=== PATIENT | female | born 1995 | race Caucasian/White ===

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

== ENCOUNTER 2019-02-25 18:17 | Emergency (ER) | payer OTHER | END 2019-02-25 21:55 | disposition home or self-care (01) | LOC: JER 18:17 ==

== ENCOUNTER 2019-02-27 12:17 | Emergency (ER) | payer OTHER ==
[2019-02-27 12:25] VITALS: BMI 33.5
[2019-02-27] MEDS ORDERED: ACETAMINOPHEN 1000 MG/100 ML VIAL (NON FORMULARY) IVPB ONE (12:44)
[2019-02-27] MEDS ORDERED: METOCLOPRAMIDE HCL INJECTION 10 MG/2 ML VIAL IVPUSH ONE (12:44)
[2019-02-27] MEDS ORDERED: SODIUM CHLORIDE 1,000 ML IV STA (13:02)
--- NOTE | 2019-02-27 13:15 | PDOC ---
History of Present Illness - General Chief Complaint: Migraine Headache Stated Complaint: HEADACHE / VOMITTING Time Seen by Provider: 02/27/19 12:31 History Source: Patient Exam Limitations: No Limitations - History of Present Illness Initial Comments: 02/27/19 13:08 23 yo female no sig pmh presents to the ED with intermittent 2 month headache, dizziness, bilateral blurry vision and eye pain. Pt seen in the ED 2 days ago for same symptoms, given toradol, fluids and benadryl with some improvement in JONES, DC home with zofran but did not fill prescription (states she did not know medications were sent). Pt saw PCP, Dr. Merino yesterday for same symptoms, states medication was sent to her pharmacy (does not know name of medication) but states that specific pharmacy will not be open until Friday. Todays s/s of of the same quality and intensity as past 2 days but due to constant NB/NB vomiting with all meals and drinks, has not kept a meal down since . Pt JONES described as pounding, non radiating, intermittent 5X a day and lasts approx 2-3 hours at a time. Pt is a new mother, baby is 1.5 years. Pt has associated photophobia of note, seen by optho and told she has "an allergy to the eyes and given antihistamines. Denies sensory changes or weakness on 1 side of her body, confusion, ambulatory disfunction, changes in speech, neck pain, CP, SOB, abdominal pain. Denies F/C/N/V cough, sore throat, body aches. 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 Past History - Past Medical History Allergies/Adverse Reactions: Allergies Allergy/AdvReac Type Severity Reaction Status Date / Time No Known Allergies Allergy Verified 02/27/19 12:25 Home Medications: Ambulatory Orders Meclizine HCl 25 mg PO TID PRN #20 tablet 02/25/19 Naproxen [Naprosyn -] 250 mg PO BID 02/25/19 Ondansetron [Zofran Odt -] 4 mg SL TID PRN #21 od.tablet 02/25/19 Pyridoxine HCl (B-6) [Vitamin B6] 50 mg PO DAILY 02/25/19 COPD: No - Reproductive History (#): 1 Para: 0 Spontaneous : 1 - Suicide/Smoking/Psychosocial Hx Smoking History: Never smoked Hx Alcohol Use: No Drug/Substance Use Hx: No Substance Use Type: None Review of Systems - Review of Systems Constitutional: No: Chills, Fever HEENTM: Yes: Eye Pain, Double Vision. No: Ear Pain, Tinnitus, Mouth Pain Respiratory: No: Shortness of Breath, Wheezing Cardiac (ROS): No: Chest Pain, Edema ABD/GI: Yes: Nausea, Vomiting. No: Constipated, Diarrhea : No: Burning, Dysuria, Discharge, Frequency, Flank Pain, Hematuria Musculoskeletal: No: Back Pain, Muscle Weakness, Neck Pain Neurological: Yes: Headache, Dizziness. No: Numbness, Paresthesia, Weakness, Unsteady Gait, Ataxia *Physical Exam - Vital Signs Last Vital Signs Temp Pulse Resp BP Pulse Ox 98.8 F 76 18 124/82 99 02/27/19 12:24 02/27/19 12:24 02/27/19 12:24 02/27/19 12:24 02/27/19 12:24 - Physical Exam General Appearance: Yes: Nourished, Appropriately Dressed. No: Apparent Distress HEENT: positive: EOMI, [place], Normal Voice, TMs Normal, Photophobia, Hearing Grossly Normal. negative: Pale Conjunctivae, Scleral Icterus (R), Scleral Icterus (L), Tonsillar Erythema, TM Erythema Neck: positive: Supple. negative: Carotid bruit Respiratory/Chest: positive: Lungs Clear, Normal Breath Sounds. negative: Respiratory Distress, Rapid RR, Crackles, Rales, Rhonchi, Stridor, Wheezing Cardiovascular: positive: Regular Rhythm, Regular Rate, S1, S2. negative: Edema , JVD, Murmur Vascular Pulses: Dorsalis-Pedis (R): 4+, Doralis-Pedis (L): 4+ Gastrointestinal/Abdominal: positive: Flat, Soft. negative: Distended, Guarding , Rebound, Tenderness Extremity: positive: Normal Capillary Refill, Normal Inspection, Normal Range of Motion Integumentary: positive: Normal Color, Dry, Warm Neurologic: positive: professional athlete II-XII NML intact, Fully Oriented, Alert, Normal Mood/ Affect, Normal Response, Motor Strength 5/5. negative: Facial Droop, Numbness, Sensory Deficit, Finger to Nose (normal), Confused, Disoriented ED Treatment Course - RADIOLOGY Radiology Studies Ordered: Category Date Time Status HEAD CT WITHOUT CONTRAST [CT] Stat CT Scan 02/27/19 13:02 Ordered *DC/Admit/Observation/Transfer Diagnosis at time of Disposition: Headache Qualifiers: Headache type: other headache syndrome Qualified Code(s): G44.89 - Other headache syndrome - Discharge Dispostion Disposition: HOME Condition at time of disposition: Stable Decision to Admit order: No - Referrals Referrals: Socorro Burnett MD [Staff Physician] - Cornelio Portillo DO [Staff Physician] - - Patient Instructions Printed Discharge Instructions: DI for Headache, DI for Migraine Additional Instructions: Please see your Primary Doctor within the next 48 hours. Make an appointment with the Neurologist referred to you as soon as possible. Take the medication sent to your Pharmacy by your Primary Doctor and also Zofran for nausea. Return to the ER for new or concerning symptoms including but not limited to: severe headaches, changes in vision/speech, weakness/changes in sensation on 1 side of your body, inability to eat or drink, high fevers. Thank you - Post Discharge Activity
[2019-02-27] MEDS ORDERED: ACETAMINOPHEN INJECTION 100 ML IVPB ONE (13:28)
[2019-02-27] MEDS ORDERED: METOCLOPRAMIDE HCL INJECTION 10 MG/2 ML VIAL ONE (13:28)
--- NOTE | 2019-02-27 13:29 | PDOC ---
Documentation entered by Ange Jacobs SCRIBE, acting as scribe for Marisela Olivera DO. Marisela Olivera DO: This documentation has been prepared by the Reynaldo bills Sammi, SCRIBE, under my direction and personally reviewed by me in its entirety. I confirm that the documentation accurately reflects all work, treatment, procedures, and medical decision making performed by me. Attending Attestation - Resident Resident Name: LisandrojamesGerman - ED Attending Attestation I have performed the following: I have examined & evaluated the patient, The case was reviewed & discussed with the resident, I agree w/resident's findings & plan, Exceptions are as noted - HPI HPI: 02/27/19 13:10 The patient is a 23 year old female, with no significant PMH, who presents to the emergency department for evaluation of 2 months of intermittent migraines (~ 5x/day). She endorses double vision and eye pain secondary to the migraine. The patient states since her headaches have been accompanied by nausea and vomiting, prompting her arrival to the ED. The patient denies chest pain, shortness of breath. Denies fever, chills, diarrhea and constipation. Denies dysuria, frequency, urgency and hematuria. Allergies: NKA - Physicial Exam PE: 02/27/19 13:22 Constitutional: Awake, alert, oriented. No acute distress. Head: Normocephalic. Atraumatic Eyes: PERRL. EOMI. Conjunctivae are not pale. ENT: Mucous membranes are moist and intact. Posterior pharynx without exudate or erythema. Uvula midline. Neck: Supple. Full ROM. No lymphadenopathy. Cardiovascular: Regular rate. Regular rhythm. S1, S2 regular. Distal pulses are 2+ and symmetric. Pulmonary/Chest: No evidence of respiratory distress. Clear to auscultation bilaterally No wheezing, rales or rhonchi. Abdominal: Soft and non-distended. There is no tenderness. No rebound, guarding or rigidity. No organomegaly. No palpable masses. Good bowel sounds. Back: No CVA tenderness. No midline spine tenderness. Musculoskeletal: No edema. No cyanosis. No clubbing. Full range of motion in all extremities. No calf tenderness. Radial/pedal pulses are intact and 2+ bilaterally Skin: Skin is warm and dry. No petechiae. No purpura. Neurological: No meningeal signs. Alert and oriented to person, place, and time. Cranial nerves II-XII are grossly intact. Normal speech. Strength is grossly symmetric. No sensory deficits. Psychiatric: Good eye contact. Normal interaction, affect and behavior. - Medical Decision Making 02/27/19 13:26 I, Dr. Marisela Olivera, DO, attest that this document has been prepared under my direction and personally reviewed by me in its entirety. I further attest, that it accurately reflects all work, treatment, procedures and medical decision -making performed by me. 02/27/19 13:26 a/p: 23yo female with 3 days of n/v and hartmann -was seen in the ED and given meds and felt better, labs reviewed from that day -pt states she did not know she had meds sent to pharmacy - never picked them up -states 2m of blurred vision - seen by Ophtho who told her to use eye drops for allergies, pt is not using drops -pt states band feeling around head -seen by PMD yesterday and dx with migraines, pmd wrote rx for meds, but pt states the pharmacy did not have the meds in stock -pt states hartmann and n/v today -no diarrhea -mild epigastric abd pain assoc with nausea -nbnb vomiting -no wt loss or gain -pt neuro intact -will place iv, will send for head ct -will monitor and reassess 02/27/19 14:44 pt ambulatory in the ED with a steady gait 02/27/19 15:[address] does not show acute findings pt states hartmann improved, but not gone ambulatory with a steady gait neuro intact given a copy of the ct report 02/27/19 15:23 pt with vomiting after po challenge 02/27/19 15:27 will repeat labs 02/27/19 16:19 chem hemolyzed, will repeat pt walking around states hartmann resolved feeling much better wants to po challenge again given water 02/27/19 16:20 if pt tolerates po and labs stable then pt can dc to home and follow up with neuro/ophtho *DC/Admit/Observation/Transfer Diagnosis at time of Disposition: Headache - Discharge Dispostion Condition at time of disposition: Stable Decision to Admit order: No - Referrals Referrals: Shagufta Dutta [Primary Care Provider] - Cornelio Portillo DO [Staff Physician] - - Patient Instructions Printed Discharge Instructions: DI for Migraine Additional Instructions: Please make an appointment to see your ophthomologist this week. Please make an appointment to see the neurologist for further evaluation of your headaches. Please take all meds as prescribed. Please return to the ED with any further concerns or complaints. Please make an appointment to see your primary care physician this week for a follow up appointment. - Post Discharge Activity
[2019-02-27] MEDS ORDERED: KETOROLAC TROMETHAMINE 30 MG/1 ML VIAL IVPUSH ONE (15:01)
[2019-02-27] MEDS ORDERED: KETOROLAC TROMETHAMINE 30 MG/1 ML VIAL ONE (15:08)
[2019-02-27] MEDS ORDERED: ONDANSETRON 4 MG/2 ML VIAL IVPUSH ONE (15:16)
[2019-02-27] MEDS ORDERED: ONDANSETRON 4 MG/2 ML VIAL ONE (15:22)
[2019-02-27 15:35] LABS: BASO % 0.7 % (0-2.0); EOS % 3.5 % (0-4.5); HEMATOCRIT 35.3 % (32.4-45.2); HEMOGLOBIN 11.5 GM/dL (10.7-15.3); LYMPH % 24.4 % (8-40); MCH 26.8 pg (25.7-33.7); MCHC 32.4 g/dl (32.0-36.0); MEAN CELL VOLUME 82.6 fl (80-96); MEAN PLT VOLUME 7.7 fl (7.5-11.1); MONO % 7.5 % (3.8-10.2); NEUT % 63.9 % (42.8-82.8); PLATELET COUNT 374 K/MM3 (134-434); RBC 4.28 M/mm3 (3.60-5.2); RDW 14.8 % (11.6-15.6); WHITE BLOOD COUNT 7.1 K/mm3 (4.0-10.0)
[2019-02-27] MEDS ORDERED: DEXAMETHASONE 4 MG TABLET (FP) PO ONE (16:41)
[2019-02-27 17:02] LABS: ALBUMIN 4.3 g/dl (3.4-5.0); BILIRUBIN,TOTAL 0.8 mg/dL (0.2-1); CALCIUM 9.3 mg/dL (8.5-10.1); CREATININE 0.5 mg/dL (0.55-1.3); POTASSIUM 3.9 mmol/L (3.5-5.1)
[2019-02-27] MEDS ORDERED: DEXAMETHASONE SOD PHOSPHATE 10 MG/1 ML VIAL ONE (17:11)
[2019-02-27 17:18] VITALS: BP 122/79; PULSE 74; TEMP 97.9
== END 2019-02-27 17:08 | disposition home or self-care (01) ==
LOC: JER 12:17
PROC: 3E0337Z Introduction of Electrolytic and Water Balance Substance into Peripheral Vein, Percutaneous Approach (ICD-10-PCS; principal; 2019-02-27)
PROC: 3E033GC Introduction of Other Therapeutic Substance into Peripheral Vein, Percutaneous Approach (ICD-10-PCS; 2019-02-27)
PROC: 3E033NZ Introduction of Analgesics, Hypnotics, Sedatives into Peripheral Vein, Percutaneous Approach (ICD-10-PCS; 2019-02-27)
PROC: 3E0333Z Introduction of Anti-inflammatory into Peripheral Vein, Percutaneous Approach (ICD-10-PCS; 2019-02-27)
DX: G44.89 Other headache syndrome (principal)
CPT/HCPCS: 36415; 70450-TC; 80053; 83690; 85025; 96361; 96374; 96375; 99283-25; J0131; J7030

== ENCOUNTER 2023-05-27 13:42 | Emergency (ER) | payer OTHER ==
[2023-05-27 13:56] VITALS: BP 113/78; PULSE 74; RESP 18; TEMP 97.9; BMI 25.4
[2023-05-27] MEDS ORDERED: SODIUM CHLORIDE 0.9% 500 ML INFUS.BAG IV ONE (15:41)
[2023-05-27] MEDS ORDERED: ACETAMINOPHEN 1000 MG/100 ML BAG IVPB ONE (15:41)
[2023-05-27] MEDS ORDERED: FAMOTIDINE 20 MG/50 ML IVPB 20 MG/50 ML MG IVPB ONE ×2 (15:41→16:03)
[2023-05-27] MEDS ORDERED: ONDANSETRON 4 MG/2 ML VIAL IVPUSH ONE (15:41)
[2023-05-27] MEDS ORDERED: ONDANSETRON 4 MG/2 ML VIAL ONE (16:03)
[2023-05-27] MEDS ORDERED: ACETAMINOPHEN INJECTION 100 ML IVPB ONE (16:03)
[2023-05-27 16:41] LABS: BASO % 0.8 % (0-2.0); EOS % 2.8 % (0-4.5); HEMATOCRIT 31.8 % (32.4-45.2); HEMOGLOBIN 10.2 GM/dL (10.7-15.3); LYMPH % 34.2 % (8-40); MCH 23.1 pg (25.7-33.7); MEAN CELL VOLUME 72.2 fl (80-96); MEAN PLT VOLUME 7.2 fl (7.5-11.1); MONO % 11.9 % (3.8-10.2); NEUT % 50.3 % (42.8-82.8); PLATELET COUNT 342 10^3/uL (134-434); RDW 16.8 % (11.6-15.6); WHITE BLOOD COUNT 5.3 K/mm3 (4.0-10.0)
[2023-05-27 16:45] LABS: EPI CELLS >36 /uL (0-25.1); HCG,QUALITATIVE URINE Negative; HYALINE CASTS 8 /uL (0-3.1); URINE APPEARANCE CLOUDY; URINE BACTERIA 6 /uL (0-1359); URINE BILIRUBIN NEGATIVE (NEGATIVE); URINE COLOR YELLOW; URINE GLUCOSE (UA) NEGATIVE (NEGATIVE); URINE KETONE TRACE (NEGATIVE); URINE LEUK ESTERASE 1+ (NEGATIVE); URINE NITRITE NEGATIVE (NEGATIVE); URINE PROTEIN NEGATIVE (NEGATIVE); URINE RBC 17 /uL (0-23.9); URINE WBC 208 /uL (0-25.8)
[2023-05-27 16:59] LABS: POTASSIUM 3.9 mmol/L (3.5-5.1)
[2023-05-27 17:01] LABS: BLOOD UREA NITROGEN 10.5 mg/dL (7-18); CALCIUM 8.9 mg/dL (8.5-10.1); MAGNESIUM 2.2 mg/dL (1.8-2.4)
[2023-05-27 17:02] LABS: ALBUMIN 3.7 g/dl (3.4-5.0)
[2023-05-27 17:04] LABS: CREATININE 0.6 mg/dL (0.55-1.3)
[2023-05-27 17:06] LABS: BILIRUBIN,TOTAL 0.7 mg/dL (0.2-1); TOT PROT 7.6 g/dl (6.4-8.2)
[2023-05-27 17:38] LABS: YEAST FEW (NEGATIVE)
== END 2023-05-27 18:27 | disposition home or self-care (01) ==
LOC: JER 13:42
PROC: 3E033GC Introduction of Other Therapeutic Substance into Peripheral Vein, Percutaneous Approach (ICD-10-PCS; principal; 2023-05-27)
PROC: 3E033NZ Introduction of Analgesics, Hypnotics, Sedatives into Peripheral Vein, Percutaneous Approach (ICD-10-PCS; 2023-05-27)
PROC: 3E033GC Introduction of Other Therapeutic Substance into Peripheral Vein, Percutaneous Approach (ICD-10-PCS; 2023-05-27)
DX: R11.2 Nausea with vomiting, unspecified (principal); R19.7 Diarrhea, unspecified; R10.13 Epigastric pain
CPT/HCPCS: 36415; 80053; 81003; 83690; 83735; 84703; 85025; 87086; 87186; 99284-25